=== PATIENT | female | born 1965 | race African-American/Black ===

== ENCOUNTER → 2016-12-06 | Outpatient (CLI) | payer MEDICARE, OTHER ==
[2016-12-06 16:57] LABS: BASO % 1 % (0-3); EOS % 3 % (0-3); HEMATOCRIT 39.7 % (36.0-47.0); HEMOGLOBIN 12.8 g/dL (12.0-15.5); LYMPH # 2.2 x10^3/uL (1.0-4.8); LYMPH % 34 % (24-48); MEAN CORPUSCULAR HEMOGLOBIN 29 pg (25-35); MEAN CORPUSCULAR HGB CONC 32 g/dL (31-37); MEAN CORPUSCULAR VOLUME 89 fL (79-100); MONO % 6 % (0-9); NEUT % 57 % (31-73); PLATELET COUNT 145 x10^3/uL (140-400); RED BLOOD COUNT 4.45 x10^6/uL (3.50-5.40); RED CELL DISTRIBUTION WIDTH 13.8 % (11.5-14.5); WHITE BLOOD COUNT 6.6 x10^3/uL (4.0-11.0)
== END | disposition home or self-care (01) ==
LOC: LAB 16:31
PROVIDERS: ATTEND Family Medicine
DX: R23.2 Flushing (principal)
CPT/HCPCS: 36415; 83036; 84443; 85027

== ENCOUNTER → 2019-01-29 | Outpatient (CLI) | payer MEDICARE ==
--- NOTE | 2019-01-29 16:50 | KCIC ---
Examination: KNEE LEFT 3V History: Pain Comparison/Correlation: None Findings: Total of 3 images of the left knee were obtained. Plate and associated screws are noted involving the distal left femur. The entire extent of the plate proximally is not included. Deformity of the distal femoral diametaphyseal region which appears related to previous trauma is noted. Spurring about the knee is notable. Small joint effusion. Deformity of the anterior aspect of the proximal tibial metaphysis is noted without soft tissue swelling. This may represent fracture fragment related to previous trauma. Impression: Marked osteopenia. Postoperative and degenerative changes. Fracture of the anterior aspect of the proximal tibial metaphysis is present but of indeterminate age. No significant soft tissue swelling at this site to suggest acute process however. Correlate with symptoms and history. Electronically signed by: Francisco Ayala MD (01/29/2019 4:47 PM) [facility]
== END | disposition home or self-care (01) ==
LOC: KCIC 11:11
PROVIDERS: ATTEND Family Medicine
DX: M25.562 Pain in left knee (principal); M85.862 Other specified disorders of bone density and structure, left lower leg; M25.462 Effusion, left knee; G89.18 Other acute postprocedural pain; M17.12 Unilateral primary osteoarthritis, left knee
CPT/HCPCS: 73562

== ENCOUNTER → 2021-05-26 | Outpatient (CLI) | payer MEDICARE, BC, MEDICAID ==
[~2021-05-26] MED LIST: AMLO-187 PO; BACL20TA PO; GABA600T7 PO; IOHEXOL 300 MG/ML 100ML VIAL. IV ONE
--- NOTE | 2021-05-26 11:38 | KCIC ---
CT NECK SOFT TISSUE WITH IV CONTRAST History:Reason: Neck mass. / Spl. Instructions: 95mL Omni 300 / History: Cystic or lipomatous mass Rt side near clavicle for 1 month. Marked w/BB Technique: CT imaging was performed of the neck soft tissues with intravenous contrast. Coronal and s agittal reconstructions were performed. Exposure: One or more of the following individualized dose reduction techniques were utilized for thi s examination: 1. Automated exposure control 2. Adjustment of the mA and/or kV according to patient size 3. Use of iterative reconstruction technique. Comparison: None Findings: No mass or fluid collection within the region of the right supraclavicular soft tissues. Marker was p laced posterior to the right thoracic inlet region. Normal appearance of the bilateral submandibular and parotid glands. Bilateral thyroid nodules largest on the left measures 1.8 cm. No pathologic lymphadenopathy. Imaged lung apices are unremarkable. Imaged paranasal sinuses and mastoid air cells are clear. Imaged orbits and intracranial contents are unremarkable. Postoperative changes of the thoracic spine partially imaged. Multilevel cervical spondylosis most pr ominent C5-C6 and C6-C7. TMJ arthropathy. Impression: 1. No CT evidence of abnormality within the region of the patient's palpable concern. Recommend cont inued clinical follow-up and imaging follow-up if interval growth. 2. Multinodular thyroid. Recommend ultrasound to further assess. Electronically signed by: Enrico Bliss DO (05/26/2021 11:36 AM) [facility]
== END ==
LOC: KCIC CT 09:21
PROVIDERS: ATTEND Family Medicine
DX: E04.2 Nontoxic multinodular goiter (principal); R22.1 Localized swelling, mass and lump, neck; M47.812 Spondylosis without myelopathy or radiculopathy, cervical region; M26.659 Arthropathy of unspecified temporomandibular joint; Z98.890 Other specified postprocedural states
CPT/HCPCS: 70491; Q9967